=== PATIENT | female | born 1980 | race Caucasian/White ===

== ENCOUNTER 2023-10-28 20:49 | Inpatient (IN) | payer MEDICARE, OTHER ==
[~2023-10-28] VITALS: Ht 162.6 cm; Wt 185.0 kg
[~2023-10-28 20:49] MED LIST: CARAFATE1 GM PO; DICLOFENAC SODI75 MG PO; IBUPROFEN800 MG PO; PRENATAL MULTI1 EAC3 PO; PROTONIX40 MG PO; WAL-PROFEN200 MG PO
[2023-10-28] MEDS ORDERED: MORPHINE SULFATE 4 MG/ML VIAL IV ONE (21:00)
[2023-10-28] MEDS ORDERED: SODIUM CHLORIDE 0.9% 1,000 ML IV ONE (21:00)
[2023-10-28] MEDS ORDERED: ondansetron HCL 4 MG/2 ML VIAL IV ONE (21:00)
[2023-10-28 21:12] LABS: EOSINOPHILS 2.4 % (0-6); HEMOGLOBIN 14.4 g/dL (12.0-18.0)
[2023-10-28 21:20] LABS: BASOPHILS 1.5 % (0-2); HEMATOCRIT 43.4 % (35.0-50.0); MCH 27.1 (27-36); MCHC 33.1 g/dl (30-36); MCV 81.9 fl (81-99); NEUTROPHILS 60.1 % (39-80); PLATELET COUNT 291 K/uL (140-440); RBC 5.31 M/ul (4.3-5.7)
[2023-10-28 21:26] LABS: ALBUMIN 3.5 g/dL (3.4-5.0); ALBUMIN/GLOBULIN RATIO 0.88 (1.1-2.4); ANION GAP 13.8 (7-21); BILIRUBIN, TOTAL 0.5 ng/dL (0.2-1.0); BUN/CREATININE RATIO 10.3 (6.0-28.6); CALCIUM 9.1 mg/dL (8.5-10.1); CREATININE, SERUM 0.97 mg/dL (0.55-1.02); POTASSIUM 3.8 mmol/L (3.5-5.1); PROTEIN, TOTAL 7.5 g/dL (6.4-8.2)
[2023-10-28] MEDS ORDERED: HYDROmorphone HCL 1 MG/ML SYR IV PRN (21:45)
[2023-10-28 21:59] LABS: INFLUENZA B NAA NEGATIVE (NEGATIVE); RESPIRATORY SYNCYTIAL VIR NAA NEGATIVE (NEGATIVE)
[2023-10-28 22:23] LABS: BILIRUBIN, URINE NEGATIVE (negative); BLOOD/HGB, URINE NEGATIVE (Negative); KETONE, URINE NEGATIVE (Negative); LEUK ESTERASE, URINE NEGATIVE (negative); NITRITE, URINE NEGATIVE (negative)
[2023-10-28] MEDS ORDERED: HEParin SOD (PORCINE) 5,000 UNIT/0.5 ML SYR SUB-Q SCH (23:40)
[2023-10-28] MEDS ORDERED: FAMOTIDINE 20 MG/ 2 ML VIAL IV SCH (23:41)
[2023-10-28] MEDS ORDERED: CEFAZOLIN SODIUM 3 GM/30 ML SYR IV SCH (23:45)
[2023-10-28] MEDS ORDERED: ondansetron HCL 4 MG/2 ML VIAL IV PRN (23:45)
[2023-10-28] MEDS ORDERED: MORPHINE SULFATE 10 MG/ML VIAL IV PRN (23:45)
[2023-10-28] MEDS ORDERED: LACTATED RINGER'S 1,000 ML IV ONE (23:45)
[2023-10-28] MEDS ORDERED: LACTATED RINGER'S 1,000 ML IV SCH (23:45)
[2023-10-28] MEDS ORDERED: KETOROLAC TROMETHAMINE 30 MG/ML VIAL IV PRN (23:45)
[2023-10-29] VITALS (14 sets, daily range): BP systolic 133–152; BP diastolic 64–90
--- NOTE | 2023-10-29 00:40 | NUR ---
PATIENT ARRIVED TO THE FLOOR VIA WHEELCHAIR. PATIENT ABLE TO SELF TRANSFER WITH NO ASSISTANCE TO HOSPITAL BED. PATIENTS ADMISSION COMPLETED. PATIENT RATES PAIN AT A 3/10 AND DENIES THE NEED FOR PAIN MEDICATION AT THIS TIME. PATIENT DENIES ANY NAUSEA. PATIENTS IV INFUSING PER ORDER. PATIENT EDUCATED ON USE OF CALL LIGHT. PATIENT DENIES ANY FURTHER NEEDS. CALL LIGHT IN REACH.
--- NOTE | 2023-10-29 02:19 | NUR ---
PATIENT IS RESTING IN BED WATCHING TV. PATIENT REPORTS /10, PRN MEDICATION GIVEN PER ORDER. PATIENT DENIES ANY NAUSEA. IV INFUSING PER ORDER. PATIENT DENIES ANY FURTHER NEEDS. SCDS IN PLACE. CALL LIGHT IN REACH.
--- NOTE | 2023-10-29 04:20 | NUR ---
PATIENT UP TO BR A SBA. PATIENT ABLE TO VOID. INTAKE AND OUTPUT RECORDED. VITALS TAKEN AND RECORDED. PATIENT DENIES ANY PAIN OR NAUSEA. PATIENT DENIES ANY FURTHER NEEDS. CALL LIGHT IN REACH.
[2023-10-29 05:21] LABS: BASOPHILS 0.7 % (0-2); EOSINOPHILS 2.9 % (0-6); HEMATOCRIT 39.3 % (35.0-50.0); HEMOGLOBIN 13.2 g/dL (12.0-18.0); LYMPHOCYTES 22.7 % (24-44); MCH 27.1 (27-36); MCHC 33.5 g/dl (30-36); MONOCYTES 7.4 % (0-12); NEUTROPHILS 66.3 % (39-80); PLATELET COUNT 246 K/uL (140-440); RBC 4.85 M/ul (4.3-5.7); RDW 15.1 (10.5-15.0)
[2023-10-29 05:41] LABS: ALBUMIN 3.1 g/dL (3.4-5.0); ALBUMIN/GLOBULIN RATIO 0.91 (1.1-2.4); ANION GAP 11.7 (7-21); BILIRUBIN, TOTAL 0.5 ng/dL (0.2-1.0); BUN/CREATININE RATIO 10.98 (6.0-28.6); CALCIUM 8.4 mg/dL (8.5-10.1); CREATININE, SERUM 0.91 mg/dL (0.55-1.02); POTASSIUM 3.7 mmol/L (3.5-5.1); PROTEIN, TOTAL 6.5 g/dL (6.4-8.2)
--- NOTE | 2023-10-29 06:47 | NUR ---
PATIENT IS RESTING IN BED WATCHING TV. PATIENT DENIES ANY PAIN OR NAUSEA. PATIENTS IV INFUSING PER ORDER. PATIENTS AM MEDS GIVEN PER ORDER. NO FURTHER NEEDS NOTED. CALL LIGHT IN REACH.
--- NOTE | 2023-10-29 07:20 | NUR ---
RECEIVED REPORT FROM ERON HALE. ASSUMING CARE OF PT. PT RESTING IN BED WITH EYES CLOSED, BREATHING EVEN AND UNLABORED. CALL LIGHT WITHIN REACH.
--- NOTE | 2023-10-29 10:05 | NUR ---
PT AWAKE IN BED, STATES ABDOMINAL PAIN IS 4/10, REQUESTS PRN PAIN MEDICATION, GIVEN. BOWEL TONES ACTIVE, PT DENIES FEELING OF BLOATING OR DISTENTION AT THIS TIME, ABDOMEN TENDER TO PALPATION SPECIFICALLY TO RUQ. PT STATES NO FURTHER NEEDS AT THIS TIME, CALL LIGHT WITHIN REACH.
--- NOTE | 2023-10-29 11:25 | NUR ---
PT PRE-OP [place] COMPLETED, PT REMOVES TONGUE RING AND UNDERWEAR. NEW GOWN IN PLACE, SCDs IN PLACE. LR WITH STRAIGHT TUBING HUNG. PT STATES NO NEEDS AT THIS TIME, CALL LIGHT WITHIN REACH.
--- NOTE | 2023-10-29 11:28 | NUR ---
annalisa completed. new gown on. scds on. call light within reach.
[2023-10-29] MEDS ORDERED: DEXAMETHASONE SOD PHOS 4 MG/ML VIAL ONE (11:44)
[2023-10-29] MEDS ORDERED: ondansetron HCL 4 MG/2 ML VIAL ONE ×2 (11:44→14:33)
[2023-10-29] MEDS ORDERED: propofoL 200 MG/20 ML VIAL ONE ×2 (11:44→12:33)
[2023-10-29] MEDS ORDERED: KETOROLAC TROMETHAMINE 30 MG/ML VIAL ONE (11:44)
[2023-10-29] MEDS ORDERED: fentaNYL citrate 100 MCG/2 ML VIAL ONE ×2 (11:44→12:48)
[2023-10-29] MEDS ORDERED: LIDOCAINE HCL 2% 5 ML SDV ONE (11:45)
[2023-10-29] MEDS ORDERED: MIDAZOLAM HCL 2 MG/2 ML VIAL ONE (11:45)
[2023-10-29] MEDS ORDERED: SUCCINYLCHOLINE IN 0.9% NACL 200 MG/10 ML SYRINGE ONE (11:47)
[2023-10-29] MEDS ORDERED: ROCURONIUM BROMIDE 50 MG/5 ML SYR ONE (11:47)
--- NOTE | 2023-10-29 11:50 | NUR ---
PT TO SURGERY.
[2023-10-29] MEDS ORDERED: iopamidoL 30 ML VIAL ONE (11:54)
[2023-10-29] MEDS ORDERED: SODIUM CHLORIDE 0.9% 40 ML IV ONE (11:54)
[2023-10-29] MEDS ORDERED: CEFAZOLIN SOD 1,000 MG/10 ML VIAL ONE (12:33)
[2023-10-29] MEDS ORDERED: SEVOFLURANE 250 ML BTL ONE (13:13)
[2023-10-29] MEDS ORDERED: ACETAMINOPHEN 1,000 MG/100 ML VIAL ONE (13:35)
[2023-10-29] MEDS ORDERED: SUGAMMADEX SODIUM 200 MG/2 ML ML ONE (13:54)
--- NOTE | 2023-10-29 14:21 | NUR ---
10/29/23 1421 Sheets,Jeanine 1411 PT ARRIVED TO PACU ON 10L VIA MASK, PT SITTING IN HIGH FOWLERS. PT ASLEEP AND SMALL AMOUNT OF SNORING NOTED. RESP EVEN AND UNLABORED. PT REACTIVE TO TACTILE STIMULI. 1418 O2 REMOVED. PT NODS TO QUESTIONS AND FALLS RIGHT BACK TO SLEEP.
[2023-10-29] MEDS ORDERED: fentaNYL citrate 50 MCG/ML SDV ONE (14:56)
[2023-10-29] MEDS ORDERED: fentaNYL citrate 100 MCG/2 ML VIAL IV PRN (15:15)
[2023-10-29] MEDS ORDERED: HYDROmorphone HCL 1 MG/ML SYR IV PRN (15:15)
[2023-10-29] MEDS ORDERED: NALOXONE HCL 0.4 MG SYR IV PRN (15:15)
[2023-10-29] MEDS ORDERED: ondansetron HCL 4 MG/2 ML VIAL IV PRN (15:15)
[2023-10-29] MEDS ORDERED: OXYCODONE/APAP 7.5/325 TAB PO PRN (15:30)
[2023-10-29] MEDS ORDERED: IBUPROFEN 600 MG TAB PO PRN (15:30)
[2023-10-29] MEDS ORDERED: ACETAMINOPHEN 500 MG TAB PO PRN (15:30)
--- NOTE | 2023-10-29 15:30 | NUR ---
PT ARRIVES TO FLOOR AT 1515. RECEIVED REPORT FROM ERON HAILE. VSS. PT ON 2L O2 VIA NC, O2 SATURATION >93%. PT STATES PAIN IS 2/10. PT STATES SHE CONTINUES TO BE MILDLY NAUSEAS, ZOFRAN GIVEN. SECOND RN SKIN ASSESSMENT COMPLETED WITH SENIOR ATTORNEY, X5 LAP SITES (4 RUQ AND 1 UMBILLICAL) ALL DRESSED WITH STERI STRIPS, SCANT AMOUNT OF RED DRAINAGE PRESENT ON ALL STERI STRIP SITES. PT STATES NO NEEDS AT THIS TIME, PUREWICK IN PLACE WHICH WAS PLACED IN PACU D/T PT STATING SHE MIGHT NEED TO VOID WELL PT CONTINUING TO BE APPEARING DROWSY. CALL LIGHT WITHIN REACH, PT'S YVONNE AT THE BEDSIDE.
--- NOTE | 2023-10-29 17:30 | NUR ---
PT UP TO RESTROOM WITH LTM SBA D/T PT FEELING THAT SHE NEEDED TO HAVE A BM. PT IS UNABLE TO HAVE A BM BUT VOIDS W/O DIFFICULTY. PT BACK TO BED, SITTING UP IN BED TO EAT DINNER. AT THE BEDSIDE, CALL LIGHT WITHIN REACH.
--- NOTE | 2023-10-29 18:20 | NUR ---
PT'S TONGUE RING GIVEN BACK TO PT PER PT REQUEST.
--- NOTE | 2023-10-29 21:30 | NUR ---
Pt ambulated in room earlier, acompanied by . tolerated well. Placed self back in bed with minimum assist. hob elevated. legs elevated. Cooperative with vitals and assessment. lungs clear dim at bases, on room air. abd large tender, 4 lap sites with steristrips in place old drainage and one over umbilical area. with old drainage. tener, very hypoactive bowel tones, denies passing gas. IVF infusing w/o problems. edema to LE 2+ generalized and hands 1+ pt morbidly obese. medicated with Motrin per abd pain.
--- NOTE | 2023-10-29 22:47 | EKG ---
[facility] [address] [facility] [place] [address] Signed Normal sinus rhythm Right axis deviation Low voltage QRS Incomplete right bundle branch block Abnormal ECG No previous ECGs available Confirmed by Jas Beasley MD () on 10/29/2023 10:47:02 PM Electronically Signed By: JAS BEASLEY MD 10/29/23 2247 PATIENT NAME: JAQUELIN ALANIS Electrocardiogram DATE OF : 84 PHYSICIAN: JAS BEASLEY MD REPORT #: [id number] REPORT IS CONFIDENTIAL AND NOT TO BE RELEASED WITHOUT AUTHORIZATION
--- NOTE | 2023-10-29 22:53 | NUR ---
RESTING, EYES CLOSED, NO S/SX DISTRESS, CPOX IN PLACE, SATS WNL. ABD LARGE, LE ELEVATED, SCDS IN PLACE. IVF INFUSING. ROOMING IN
--- NOTE | 2023-10-30 00:11 | NUR ---
UP TO BRP, VOIDED, BACK TO BED, SOB AND TACHEIPNIA PRESENT ON RETURN, SATS 93% CPOX ON AT BEDSIDE, SCDS IN PLACE, NO CHANGES EDEMA TO LE, C/O 3/10 ABD PAIN, NOT PASSING GAS YET.MEDICATED WITH TYLENOL 1000MG PO. ROOMING IN
[2023-10-30 02:53] VITALS: BP 106/46
--- NOTE | 2023-10-30 03:11 | NUR ---
PT UP TO BRP, 1PA. VOIDED, BACK TO BED, TOLERATED FAIR, INCREAESD RESP RATED WHEN TRYING TO GET IN TO BED, DENIES SOB. CPOX AT BEDSIDE, SATS 90-95%. C/O ABD PAIN, MEDICATED WITH TYLENOL . PASSING GAS, NO BM. NO C/O N/V. IVF INFUSING, TOLERATING PO FLUIDS WELL. PLEASANT AND COOPERATIVE WITH VITALS AND ASSESSMENT. ABD LARGE HYPOACTIVE BOWERL TONES, TENDER, 4 R ABD SIDE LAP SITES WITH OLD DRAINAGE AND UMBILICAL AREA, NO CHANGES
[2023-10-30 03:14] VITALS: BP 106/46
[2023-10-30 05:41] VITALS: BP 139/63
[2023-10-30 05:42] VITALS: BP 139/63
--- NOTE | 2023-10-30 05:57 | NUR ---
UP TO BRP W ASSIST, VOIDED, BACK TO BED, TACHY AND TACHEIPNEIC ON RETURN TO BED. CONTINUES TO DENIED SOB WHEN WALKING "THIS IS MY NORMAL" STAED. ON ROOM AIR, CPOX ON AT BEDSIDE, SATS 92% ON RETURN, PULSE 105 AND IT RECUPERATED EASILY DOWN TO 90-95. ABD LARGE TENDER R SIDE, TEJ, PASSING GAS, 5 LAP SITES WITH STERI STRIPS AND OLD DRAINAGE. C/O 4/10 ABD PAIN ON RETURN, MEDICATED WITH TYLENOL 1000MG PO. TOLERATING LIQUIDS WELL, NO N/V. SCDS OFF AT THIS TIME HER REQUEST, LE ELEVATED, IMPROVED EDEMA. PLEASANT AND COOPERATIVE, IVF INFUSING. NO C/O ADVERSE REACTION TO IV ABX. ROOMING IN
--- NOTE | 2023-10-30 07:20 | NUR ---
PT REPORT RECEIVED FROM ERON HENNING. PT IS ASLEEP WHEN I ENTERED HER ROOM, CPOX ALARMING WITH SPO2 AT 72% ON ROOM AIR. PT WAS AWAKENED BY VOICE AND ENCOURAGED TO BREATHE DEEPLY, HOB ELEVATED MORE, SPO2 CAME UP TO 96% WITHIN 15 SECONDS AFTER PT WOKE. PT DENIES ANY NEEDS AT THIS TIME, REPORTS HER PAIN IS A 3 OUT OF 10 CURRENTLY. WHITE BOARD UPDATED, PT'S S/O IN WITH PT. CALL LIGHT IN REACH.
--- NOTE | 2023-10-30 08:53 | NUR ---
UR CLINICAL REVIEW: 2 MN FOR VERSALUS-PATIENT MEETS MD [facility] NOTIFIED AND ORDER CHANGED MEDICARE OBS TO [facility] 10/30/23 @ 0734 WILL UPDATE REG NO AUTH NEEDED PER MEDICARE GUIDELINES ANTICIPATE DC TO HOME IN THE NEXT 24 HOURS
--- NOTE | 2023-10-30 09:00 | NUR ---
PT ASKED TO GO ON A WALK. WE DID ONE ROUND AROUND THE NURSING STATION . PT WANTED TO GO BACK IN THE ROOM AND USED THE RESTROOM. PT DIDNT NEED ANYTHING ELSE CALL LIGHT IS WITHIN REACH.
--- NOTE | 2023-10-30 09:30 | NUR ---
Dr. Knutson in with pt and pt's s/o for discharge assessment. Pt IV removed, cath intact, educated pt on s/sx of infection. pressure bandage applied. Advised pt she can get dressed but that discharge paperwork may take some time and that we will return with them when completed.
[2023-10-30] MEDS ORDERED: IBUPROFEN600 MG PO (09:36)
[2023-10-30] MEDS ORDERED: OXYCODON-ACETA1 EAC2 PO (09:36)
[2023-10-30] MEDS ORDERED: ACETAMINOPHEN500 MG PO (09:36)
[2023-10-30 09:44] VITALS: BP 126/88
--- NOTE | 2023-11-01 11:05 | DS ---
[facility] [address] [place], [place] [address] Signed ADMISSION DATE: 10/30/2023 DISCHARGE DATE: 10/30/2023 REASON FOR ADMISSION: 1. Acute calculous cholecystitis. 2. Morbid obesity, BMI greater than 70. HISTORY: This 43-year-old white woman, presented to the emergency room, was evaluated by Dr. Garces with abdominal pain, evaluation included clinical examination, lab studies including a CBC showing a white count of 12.[address] scan showing findings of a single large gallstone in the infundibulum of the gallbladder. The findings consistent with acute calculous cholecystitis. She was admitted for further evaluation and care. PERTINENT PHYSICAL EXAMINATION: GENERAL: Showed a markedly obese white woman with a BMI of 70.2, 5 feet 4 inches in height, 185 kg in weight. Mallampati score was 4. CHEST: Clear. HEART: Regular without murmur. ABDOMEN: Diffuse tenderness mostly in the right upper quadrant. HOSPITAL COURSE: She was given fluid resuscitation, IV antibiotics and underwent operation on Sunday, October 29, 2023. Operation was challenging on the basis of her significant obesity, but it was accomplished safely. The gallbladder was distended and inflamed and had a single large 2.5 cm gallstone. The cholangiogram was not performed on this occasion, though it is normally my practice to do so. Notably, she had normal liver enzymes preoperatively normal biliary ductal system as well. Postoperatively she had a quick recovery. By day of discharge, she is ambulating well, tolerating a regular diet, has minimal incisional pain and doing well. FOLLOWUP PLAN: She will return to see me in approximately four weeks. DISCHARGE MEDICATIONS: Will include: 1. Motrin 600 mg p.o. q.6 hours as needed for pain #30, refill 1. 2. Oxycodone/Tylenol 7.5/325 mg 1 tab p.o. q.6 hours as needed for pain #6. 3. Tylenol 500 mg 2 tabs p.o. q.6 hours as needed for pain #30. Electronically Signed By: SMILEY WINTER MD 11/01/23 1105 PATIENT NAME: JAQUELIN ALANIS DISCHARGE SUMMARY DATE OF : 84 REPORT #: [id number] PHYSICIAN: SMILEY WINTER MD PCP: NO PRIMARY CARE PHYSICIAN REPORT IS CONFIDENTIAL AND NOT TO BE RELEASED WITHOUT AUTHORIZATION [facility] [address] [place] [id number] Signed SPECIAL INSTRUCTIONS: She is permitted to shower in 24 hours from now and should ambulate on a routine basis. We will see her back in the office in four weeks or so. If she has problems in the meantime, she will let me know. DISCHARGE DIAGNOSES: 1. Acute calculous cholecystitis, status post laparoscopic cholecystectomy without intraoperative cholangiogram on October 29, 2023. 2. Morbid obesity, body mass index greater than 70. MD DESHAUN Kessler/EVELYN /[id number] cc: Zhane Dez-Blackduck, DO Copies: ~ Electronically Signed By: SMILEY WINTER MD 11/01/23 1105 PATIENT NAME: JAQUELIN ALANIS DISCHARGE SUMMARY DATE OF : [birth year] REPORT #: [id number] PHYSICIAN: SMILEY WINTER MD PCP: NO PRIMARY CARE PHYSICIAN REPORT IS CONFIDENTIAL AND NOT TO BE RELEASED WITHOUT AUTHORIZATION
--- NOTE | 2023-11-01 11:05 | HP ---
[facility] [address] [place], [place] [address] Signed ADMISSION DATE: 10/28/2023 TIME: 11:44 p.m. ISSUE: Morbid obesity (BMI greater than 70) and acute calculous cholecystitis. HISTORY: This quite remarkably obese 43-year-old white woman is accompanied by her and her [id number]. She lives in [place]. Beginning this morning, she began having severe abdominal pain diffusely throughout the abdomen. She presented to the emergency room where she was thoroughly evaluated by Dr. Garces included a CT scan of the abdomen, which was performed showing gallstones in the gallbladder and no sign of intrahepatic or extrahepatic ductal dilatation. Her lab studies were noted to show a white count elevated at 12.6 with hematocrit of 43.4, and a platelet count of 291,000. A chem profile is essentially normal. Glucose elevated at 136 and a beta HCG, which was negative. Lipase was normal at 26. Urinalysis was additionally noted to be normal. Her viral panel was negative including for coronavirus. The patient has been given some an opiate medication, which was somewhat helpful to her, but she still has significant pain. She has had no known fever or chills and no nausea or vomiting, so far as I can determine. PAST MEDICAL HISTORY: Rather unremarkable despite her significant obesity. She weighed 408 pounds and is 5 feet 2 inches tall. She has not had surgery in the past. Has had no childbirth. Unknown, if she has polycystic ovaries syndrome. SOCIAL HISTORY: She does not smoke, does not drink alcohol and denies any drug use. She does have an intrauterine device. REVIEW OF SYSTEMS: Her pain is not subcostal rather bilateral mid abdomen. She denies back pain. PHYSICAL EXAMINATION: GENERAL: Very obese white woman who looks to be in moderate discomfort. BMI 70.2, 5 feet 4 inches and height, 185 kg. Electronically Signed By: SMILEY WINTER MD 11/01/23 1105 PATIENT NAME: JAQUELIN ALANIS HISTORY AND PHYSICAL DATE OF : 84 REPORT #: [id number] PHYSICIAN: SMILEY WINTER MD PCP: NO PRIMARY CARE PHYSICIAN REPORT IS CONFIDENTIAL AND NOT TO BE RELEASED WITHOUT AUTHORIZATION [facility] [address] [place], [place] [address] Signed NECK: Trachea is midline. NEUROLOGIC: Mallampati score would be 4. She is able to extend her tongue. CHEST: Shows normal respiratory excursion without tachypnea. HEART: Regular without murmur. ABDOMEN: Quite obese. She has tenderness in the epigastric and right subcostal area. There is no discernible ascites though abdominal obesity precludes typical examination. EXTREMITIES: Lower extremities are obese, but without sign of acute deep venous thrombosis or other similar problem. LABORATORY STUDIES AND IMAGING STUDIES: As described. I have reviewed her CT scan. The gallbladder does extend to the edge of the liver and does show at least one large stone and possibly multiple stones scattered at the infundibulum. There is no sign of intrahepatic ductal dilatation. There is profound abdominal wall obesity. ASSESSMENT: The patient has acute calculous cholecystitis. Fluid resuscitation is underway as are antibiotics and parental pain medication. I did discuss with the patient and her family with the use of illustrations, the pathophysiology of biliary disease and recommendation of treatment to include cholecystectomy. A laparoscopic approach would be most likely possible though she may require an open operation depending on clinical findings. The risk of bleeding, infection, bile duct injury, need for open surgery, and other unforeseen complications in part related to her significant obesity were all reviewed in detail with her. She understands and wished to proceed. We will initiate Ancef, DVT prophylaxis, parental pain medication. Continue IV fluids and anticipate surgery tomorrow (Monday) likely in the mid day. MD DESHAUN Kessler/MODL /[id number] cc: Dr. Garces Electronically Signed By: SMILEY WINTER MD 11/01/23 1105 PATIENT NAME: JAQUELIN ALANIS HISTORY AND PHYSICAL DATE OF : 84 REPORT #: [id number] PHYSICIAN: SMILEY WINTER MD PCP: NO PRIMARY CARE PHYSICIAN REPORT IS CONFIDENTIAL AND NOT TO BE RELEASED WITHOUT AUTHORIZATION [facility] [address] [place], [place] [address] Signed Copies: ~ Electronically Signed By: SMILEY WINTER MD 11/01/23 1105 PATIENT NAME: JAQUELIN ALANIS HISTORY AND PHYSICAL DATE OF : 84 REPORT #: [id number] PHYSICIAN: SMILEY WINTER MD PCP: NO PRIMARY CARE PHYSICIAN REPORT IS CONFIDENTIAL AND NOT TO BE RELEASED WITHOUT AUTHORIZATION
--- NOTE | 2023-11-01 11:05 | OR ---
[facility] [address] [place], [place] [address] Signed DATE OF OPERATION: 10/29/2023 SURGEON: Smiley Winter MD PREOPERATIVE DIAGNOSES: 1. Acute calculous cholecystitis. 2. Morbid obesity (super obese), BMI greater than 70 (407 pounds, 5 feet 4 inches). POSTOPERATIVE DIAGNOSES: 1. Acute calculous cholecystitis. 2. Morbid obesity (super obese), BMI greater than 70 (407 pounds, 5 feet 4 inches). PROCEDURE: Laparoscopic cholecystectomy without cholangiogram; prolonged, complicated, and difficult. ANESTHESIA: General endotracheal, Davin Samaria, PUNCHER AND FASTENER and local 10 mL of 0.25% Marcaine with epinephrine. INDICATION: This quite morbidly obese 43-year-old white woman presented to the emergency room yesterday having a full day's worth of abdominal pain largely in the right subcostal area. Evaluation by Dr. Garces at [facility] confirmed findings of a large gallstone in the infundibulum of the gallbladder without sign of intrahepatic ductal dilatation or elevated liver enzymes. White count was greater than 12.6. The patient is quite markedly obese with a BMI greater than 70 (greater than 400 pounds, height 5 feet 4 inches). HOSPITAL COURSE: She was admitted by me yesterday, given intravenous antibiotics, parenteral pain medication, IV fluids and so forth and now is prepared for operation. Notably, her significant obesity does play some concern regarding her operative management. were reviewed with the patient and her and with the smoke tester who considered optimized for operation at this time. FINDINGS: She certainly did have a thick abdominal wall pannus. Entry to the abdomen was straightforward with an open Shilpa cannula device. She did have a fatty liver and the Electronically Signed By: SMILEY WINTER MD 11/01/23 1105 PATIENT NAME: JAQUELIN ALANIS OPERATIVE REPORT DATE OF : 84 REPORT #: [id number] PHYSICIAN: SMILEY WINTER MD PCP: NO PRIMARY CARE PHYSICIAN REPORT IS CONFIDENTIAL AND NOT TO BE RELEASED WITHOUT AUTHORIZATION [facility] [address] [place], [place] [address] Signed gallbladder was inflamed extending to the edge of the liver. Given significant intra-abdominal visceral fat, an additional trocar and a fan retractor was used to provide exposure. The gallbladder was dissected free with meticulous care, identifying well the cystic duct and cystic artery. Though, it is normally my custom to perform cholangiogram in essentially all patients under the circumstances of her tenuous exposure due to her obesity and given no strict indication for cholangiography (liver enzymes are normal with no ductal dilatation, etc as well as a single gallstone), I did not perform a cholangiogram. Nevertheless, cholecystectomy was performed safely and with essentially no blood loss and without known complication. She was extubated as well without hazard. DESCRIPTION OF PROCEDURE: The patient was brought to the operating room and given a general endotracheal anesthetic. A wedge back support was used to assist with exposure and a GlideScope used by the smoke tester. My own observation showed the hypopharyngeal tissues to be rather redundant and the airway rather small but intubation was accomplished without hazard. Thereafter, the abdomen was prepared with a chlorhexidine solution and draped sterilely. The subcostal margins were defined as was the umbilicus well below the abdominal wall pannus inferiorly. A supraumbilical incision was made and using an open Shilpa cannula technique, the abdomen was entered and a Shilpa cannula placed (a standard Shilpa cannula was adequate for the purpose at hand today). Pneumoperitoneum was achieved to a level of 14 mmHg with carbon dioxide gas. Intra-abdominal inspection showed no sign of ascites or carcinomatosis but did show fatty liver. The gallbladder was not at that time visualized due to considerable amount of intra-abdominal fat. A 12 mm epigastric port was placed. Manipulation showed the gallbladder beneath the liver edge to be distended and inflamed. Two additional trocars were placed in their usual configuration in the subxiphoid and right midclavicular line. The gallbladder was tensely distended and therefore needed decompression. An additional 5 mm trocar was placed. This trocar 15 mm made for obesity procedures. Decompression of the gallbladder was undertaken at the apex of the gallbladder. The puncture site secured with a retractor. Elevation of the gallbladder was undertaken but quite obviously a fan retractor would be needed for exposure. The aforementioned 5 mm trocar was used for this purpose. The gallbladder was elevated cephalad and secured initially to drapes and subsequently with a traumatic towel clamp to the abdominal wall pannus. At this point, good exposure was afforded. The infundibulum was grasped and using blunt and electrocautery dissection with the hook cautery meticulous dissection was undertaken ultimately identifying the cystic duct and cystic arterial branches. The critical view of safety was maintained. A dominant cystic artery branch was identified and doubly clipped and ultimately divided with electrocautery. This allowed for good exposure of Electronically Signed By: SMILEY WINTER MD 11/01/23 1105 PATIENT NAME: JAQUELIN ALANIS OPERATIVE REPORT DATE OF : 84 REPORT #: [id number] PHYSICIAN: SMILEY WINTER MD PCP: NO PRIMARY CARE PHYSICIAN REPORT IS CONFIDENTIAL AND NOT TO BE RELEASED WITHOUT AUTHORIZATION [facility] [address] [place], [place] [address] Signed the cystic duct. Consideration was made for intraoperative cholangiography which is my usual approach, however, given the tenuous exposure afforded and with some level of hazard of causing injury to the surrounding tissue, cholangiogram was not undertaken. The cystic duct was triply clipped and divided and the gallbladder was then dissected free in a retrograde fashion. arterial branches were clipped and divided as well. The gallbladder was ultimately excised from the hepatic fossa and placed in an endobag and extracted through the supraumbilical port site. The gallbladder was examined on the back table and found to have chronic and acute inflammatory changes of the mucosa. The gallstone noted was about 2.5 cm in size and there was no evidence of neoplasm of the mucosa of the gallbladder. Irrigation was undertaken in the subhepatic space. There was no sign of bile leak, bleeding or other problems. Excess irrigation fluid was suctioned free. The trocars were then removed under direct visualization showing no sign of bleeding. The infraumbilical fascial incision was reapproximated with interrupted 0 Vicryl suture and an additional running 0 PDS suture placed as well. 10 mL of 0.25% Marcaine with epinephrine was injected locally. The skin was closed with interrupted 3-0 Vicryl. Steri-Strips were applied. The patient was ultimately extubated and transported to the recovery room in good condition having suffered no known complication. The operation was prolonged, complicated, and difficult lasting four times longer than would be expected. Smiley Winter MD /MODL /[id number] cc: Dr. Zhane Garces Copies: ~ Electronically Signed By: SMILEY WINTER MD 11/01/23 1105 PATIENT NAME: JAQUELIN ALANIS OPERATIVE REPORT DATE OF : 84 REPORT #: [id number] PHYSICIAN: SMILEY WINTER MD PCP: NO PRIMARY CARE PHYSICIAN REPORT IS CONFIDENTIAL AND NOT TO BE RELEASED WITHOUT AUTHORIZATION
== END 2023-10-30 10:40 | disposition home or self-care (01) | DRG 418 ==
LOC: ED 20:49 → MS 20:51
PROVIDERS: Family Medicine; ADMIT Surgery; ATTEND Surgery
PROC: 0FT44ZZ Resection of Gallbladder, Percutaneous Endoscopic Approach (ICD-10-PCS; principal; 2023-10-29 12:00)
DX: K80.00 Calculus of gallbladder with acute cholecystitis without obstruction (principal); Z68.45 Body mass index [BMI] 70 or greater, adult; E66.01 Morbid (severe) obesity due to excess calories; K76.0 Fatty (change of) liver, not elsewhere classified
CPT/HCPCS: 00790; 36415; 74177; 80053; 81003; 83690; 84703; 85025; 87502; 93005; 93010; 96372; 96375; 96376; 99285-25; A9270; G0378; J0131; J0330; J0690; J1100; J1170; J1644; J1885; J2001; J2250; J2270; J2405; J2704; J3010; J3490; J7030; J7121; Q9967; U0002